=== PATIENT | male | born 1970 | race Caucasian/White ===

== ENCOUNTER 2021-10-22 12:53 | Inpatient (IN) | payer OTHER ==
[2021-10-22 13:35] VITALS: BMI 23.0
[2021-10-22] MEDS ORDERED: BENZOCAINE/MENTHOL (CHLORASEPTIC ) LOZENGE MM PRN (14:47)
[2021-10-22] MEDS ORDERED: METHOCARBAMOL 500 MG TABLET PO PRN (14:47)
[2021-10-22] MEDS ORDERED: cloNIDine HCL 0.1 MG TABLET PO ONE (14:47)
[2021-10-22] MEDS ORDERED: BUPRENORPHINE HCL 150 MCG, BUPRENORPHINE HCL 75 MCG BC ONE (14:47)
[2021-10-22] MEDS ORDERED: IBUPROFEN 400 MG TABLET (FP) PO PRN (14:47)
[2021-10-22] MEDS ORDERED: diazePAM 5 MG TABLET PO PRN (14:47)
[2021-10-22] MEDS ORDERED: DICYCLOMINE HCL 10 MG CAPSULE PO PRN (14:47)
[2021-10-22] MEDS ORDERED: MAGNESIUM HYDROX 2400MG/30ML ORAL SUSPENSION 30 ML CUP PO PRN (14:47)
[2021-10-22] MEDS ORDERED: ACETAMINOPHEN 325 MG TABLET (FP) PO PRN ×2 (14:47)
[2021-10-22] MEDS ORDERED: NICOTINE 10 MG CARTRIDGE (INHALER) IH PRN (14:47)
[2021-10-22] MEDS ORDERED: IBUPROFEN 600 MG TABLET (FP) PO PRN (14:47)
[2021-10-22] MEDS ORDERED: MAGNESIUM CITRATE 300 ML BOTTLE PO PRN (14:47)
[2021-10-22] MEDS ORDERED: ONDANSETRON *ODT* 4 MG TABLET SL PRN (14:47)
[2021-10-22] MEDS ORDERED: MAG HYDROX/AL HYDROX/SIMETH 30 ML UNIT-DOSE CUP PO PRN (14:47)
[2021-10-22] MEDS ORDERED: BISMUTH SUBSALICYLATE 262 MG/15 ML BTL PO PRN (14:47)
[2021-10-22] MEDS ORDERED: BUPRENORPHINE HCL 150 MCG, BUPRENORPHINE HCL 75 MCG BC PRN (14:47)
[2021-10-22] MEDS ORDERED: LOPERAMIDE HCL 2 MG CAPSULE PO PRN (14:47)
[2021-10-22] MEDS ORDERED: PRENATAL VITAMINS W/ FOLIC ACID TABLET (FP) PO SCH (15:00)
[2021-10-22] MEDS ORDERED: NICOTINE 14 MG/24 HOURS TOPICAL PATCH TD SCH (15:00)
[2021-10-22] MEDS ORDERED: BUPRENORPHINE HCL 150 MCG FILM BC ONE ×2 (16:59→18:09)
[2021-10-22] MEDS ORDERED: BUPRENORPHINE HCL 75 MCG FILM BC ONE ×2 (17:00→18:09)
[2021-10-22] MEDS: hydrOXYzine PAMOATE 25 MG CAPSULE (FP) PO SCH ×2 (18:47→22:17)
[2021-10-22] MEDS ORDERED: cloNIDine HCL 0.1 MG TABLET PO PRN (18:47)
[2021-10-22] MEDS ORDERED: THIAMINE HCL 100 MG TABLET (FP) PO SCH (22:00)
[2021-10-22] MEDS ORDERED: MELATONIN 5 MG TABLETS PO SCH (22:00)
[2021-10-23] MEDS ORDERED: BUPRENORPHINE HCL 150 MCG, BUPRENORPHINE HCL 75 MCG BC PRN
[2021-10-23] MEDS: hydrOXYzine PAMOATE 25 MG CAPSULE (FP) PO SCH (05:07)
[2021-10-23] MEDS ORDERED: BUPRENORPHINE HCL 150 MCG, BUPRENORPHINE HCL 75 MCG BC SCH (06:00)
[2021-10-23] MEDS ORDERED: BUPRENORPHINE HCL 150 MCG FILM BC ONE (06:00)
[2021-10-23] MEDS ORDERED: BUPRENORPHINE HCL 75 MCG FILM BC ONE (06:00)
[2021-10-23 09:32] VITALS: BP 142/67; PULSE 77; TEMP 98
[2021-10-24] MEDS ORDERED: BUPRENORPHINE HCL 450 MCG FILM BC SCH (06:00)
[2021-10-25] MEDS ORDERED: BUPRENORPHINE/NALOXONE 4 MG/1 MG FILM PACKET SL SCH (06:00)
[2021-10-26] MEDS ORDERED: BUPRENORPHINE/NALOXONE 8 MG/2 MG FILM PACKET SL ONE (06:00)
== END 2021-10-23 09:05 | disposition left against medical advice (07) | DRG 770 ==
LOC: YASAS 12:53 → Y6N 16:14
PROVIDERS: ADMIT Allergy & Immunology; ATTEND Surgery
PROC: HZ2ZZZZ Detoxification Services for Substance Abuse Treatment (ICD-10-PCS; principal; 2021-10-22)
DX: F11.23 Opioid dependence with withdrawal (principal); F14.20 Cocaine dependence, uncomplicated; F12.20 Cannabis dependence, uncomplicated; F17.210 Nicotine dependence, cigarettes, uncomplicated; F41.9 Anxiety disorder, unspecified; I10 Essential (primary) hypertension
CPT/HCPCS: 93005; 93010; C9803-CS; J0735; U0003; U0005

== ENCOUNTER 2024-09-14 21:38 | Inpatient (IN) | payer OTHER ==
[2024-09-14 22:20] VITALS: BMI 22.6
[2024-09-14] MEDS ORDERED: BENZONATATE 200 MG CAPSULE PO PRN (22:52)
[2024-09-14] MEDS ORDERED: LOPERAMIDE HCL 2 MG CAPSULE PO PRN (22:52)
[2024-09-14] MEDS ORDERED: BENZOCAINE/MENTHOL (CHLORASEPTIC ) LOZENGE MM PRN (22:52)
[2024-09-14] MEDS ORDERED: NALOXONE (NARCAN) HCL 4 MG/0.1 ML SPRAY NS PRN (22:52)
[2024-09-14] MEDS ORDERED: NICOTINE POLACRILEX 4 MG GUM BUC PRN (22:52)
[2024-09-14] MEDS ORDERED: POLYETHYLENE GLYCOL (HEALTHYLAX) 3350 17 GM PACKET PO PRN (22:52)
[2024-09-14] MEDS ORDERED: guaiFENesin 600 MG TABLET.ER (FP) PO PRN (22:52)
[2024-09-14] MEDS ORDERED: MAG HYDROX/AL HYDROX/SIMETH 30 ML UNIT-DOSE CUP PO PRN (22:52)
[2024-09-14] MEDS ORDERED: MAGNESIUM HYDROX 2400MG/30ML ORAL SUSPENSION 30 ML CUP PO PRN (22:52)
[2024-09-14] MEDS ORDERED: DICYCLOMINE HCL 10 MG CAPSULE PO PRN (22:52)
[2024-09-14] MEDS ORDERED: ONDANSETRON *ODT* 4 MG TABLET SL PRN (22:52)
[2024-09-14] MEDS ORDERED: INSULIN (NOVOLOG) ASPART 100 UNITS/ML 10ML VIAL ONE (23:51)
[2024-09-15] MEDS: INSULIN (NOVOLOG) ASPART 100 UNITS/ML 10ML VIAL SQ ONE (00:07)
[2024-09-15] MEDS: IBUPROFEN 600 MG TABLET (FP) PO PRN (06:27)
[2024-09-15] MEDS: INSULIN (NOVOLOG) ASPART 100 UNITS/ML 10ML VIAL SQ SCH (06:27)
[2024-09-15] MEDS: hydrOXYzine PAMOATE 25 MG CAPSULE (FP) PO PRN (06:44)
[2024-09-15] MEDS: PRENATAL VITAMINS W/ FOLIC ACID TABLET (FP) PO SCH (09:41)
[2024-09-15] MEDS: NICOTINE 14 MG/24 HOURS TOPICAL PATCH TD SCH (09:41)
[2024-09-15] MEDS: diazePAM 5 MG TABLET PO PRN (09:43)
[2024-09-15] MEDS: methaDONE HCL 10 MG TABLET (FOR DETOX USE ONLY) PO ONE (09:43)
[2024-09-15 10:01] LABS: HEMOGLOBIN 10.7 g/dL (13.7-17.5); MCHC 30.6 g/dl (32.3-36.5); MEAN CELL VOLUME 80.8 fl (79.0-92.2); MEAN PLT VOLUME 9.7 fl (9.4-12.4); PLATELET COUNT 356 x10^3/uL (163-337); RDW 13.1 % (12.2-16.1)
[2024-09-15 10:07] LABS: SODIUM 134 mmol/L (136-145)
[2024-09-15 10:08] LABS: CHLORIDE 96 mmol/L (98-107); POTASSIUM 4.3 mmol/L (3.5-5.1)
[2024-09-15 10:14] LABS: ALBUMIN 2.7 g/dl (3.4-5.0); BLOOD UREA NITROGEN 11.5 mg/dL (7-18); CALCIUM 9.1 mg/dL (8.5-10.1)
[2024-09-15 10:15] LABS: ANION GAP 9 mmol/L (4-13); CO2 29 mmol/L (21-32); GLUCOSE,RANDOM 212 mg/dL (74-106)
[2024-09-15 10:17] LABS: CREATININE 0.7 mg/dL (0.55-1.3); SGOT/AST 34 U/L (15-37); SGPT/ALT 44 U/L (13-61)
[2024-09-15 10:19] LABS: BILIRUBIN,TOTAL 0.4 mg/dL (0.2-1); TOT PROT 8.1 g/dl (6.4-8.2)
[2024-09-15 10:20] LABS: ALK PHOS 153 U/L (45-117)
[2024-09-15] MEDS: diazePAM 5 MG TABLET PO SCH (11:51)
[2024-09-15] MEDS: SERTRALINE HCL 50 MG TABLET (FP) PO SCH (11:51)
[2024-09-15] MEDS: BISMUTH SUBSALICYLATE 524 MG/30 ML PO PRN (11:55)
[2024-09-15] MEDS ORDERED: INSULIN ASPART SLIDING SCALE (NOVOLOG) 1 VIAL SQ ONE ×2 (12:00→16:53)
[2024-09-15] MEDS: hydrALAZINE HCL 10 MG TABLET PO SCH (14:22)
[2024-09-15] MEDS: methaDONE HCL 10 MG TABLET (FOR DETOX USE ONLY) PO PRN (15:46)
[2024-09-15] MEDS: THIAMINE 100 MG TABLET PO SCH (22:25)
[2024-09-15] MEDS: MELATONIN 5 MG TABLETS PO SCH (22:25)
[2024-09-16] MEDS: cloNIDine HCL 0.1 MG TABLET PO PRN (12:02)
[2024-09-16] MEDS: ACETAMINOPHEN 325 MG TABLET (FP) PO PRN (12:02)
[2024-09-16] MEDS: METHOCARBAMOL 500 MG TABLET PO PRN (12:02)
[2024-09-17] MEDS: diazePAM 5 MG TABLET PO SCH (05:49)
[2024-09-17] MEDS: methaDONE HCL 10 MG TABLET (FOR DETOX USE ONLY) PO ONE (10:12)
[2024-09-18] MEDS: diazePAM 5 MG TABLET PO SCH (06:02)
[2024-09-18] MEDS ORDERED: INSULIN ASPART SLIDING SCALE (NOVOLOG) 1 VIAL SQ ONE (12:13)
[2024-09-19] MEDS: diazePAM 5 MG TABLET PO ONE (05:48)
[2024-09-19] MEDS: methaDONE HCL 10 MG TABLET (FOR DETOX USE ONLY) PO ONE (09:31)
[2024-09-19] MEDS ORDERED: INSULIN ASPART SLIDING SCALE (NOVOLOG) 1 VIAL SQ ONE (11:51)
[2024-09-19] MEDS: GABAPENTIN 400 MG CAPSULE PO PRN (19:39)
[2024-09-20] MEDS: IBUPROFEN 400 MG TABLET (FP) PO PRN (05:53)
[2024-09-20 08:32] VITALS: BP 129/86; PULSE 79; RESP 16; TEMP 98.3
[2024-09-20] MEDS ORDERED: INSULIN ASPART SLIDING SCALE (NOVOLOG) 1 VIAL SQ ONE (12:07)
== END 2024-09-20 12:20 | disposition other institution (70) | DRG 773 ==
LOC: YASAS 21:38 → Y3N 23:24
PROVIDERS: ADMIT Allergy & Immunology; ATTEND Allergy & Immunology
PROC: HZ2ZZZZ Detoxification Services for Substance Abuse Treatment (ICD-10-PCS; principal; 2024-09-14)
DX: F11.23 Opioid dependence with withdrawal (principal); F10.230 Alcohol dependence with withdrawal, uncomplicated; F13.20 Sedative, hypnotic or anxiolytic dependence, uncomplicated; F12.20 Cannabis dependence, uncomplicated; F17.210 Nicotine dependence, cigarettes, uncomplicated; F19.24 Other psychoactive substance dependence with psychoactive substance-induced mood disorder; F43.10 Post-traumatic stress disorder, unspecified; F41.9 Anxiety disorder, unspecified; F32.A Depression, unspecified; I10 Essential (primary) hypertension; E11.9 Type 2 diabetes mellitus without complications; Z79.84 Long term (current) use of oral hypoglycemic drugs; Z79.85 Long-term (current) use of injectable non-insulin antidiabetic drugs
CPT/HCPCS: 36415; 80053; 80305; 80307; 82962; 85027; 86780; 87811; 93005; 93010